=== PATIENT | female | born 1985 | race Two or more races ===

== ENCOUNTER 2025-01-14 09:27 | Emergency (ER) | payer OTHER ==
[~2025-01-14] VITALS: Ht 167.6 cm; Wt 83.9 kg
[2025-01-14] MEDS ORDERED: METHYLPREDNISOLONE SOD SUCC 40 MG VIAL IV ONE (10:30)
[2025-01-14] MEDS ORDERED: BENZONATATE 200 MG CAPSULE PO ONE (10:30)
[2025-01-14] MEDS ORDERED: LEVALBUTEROL HCL 1.25 MG/3 ML SOLUTION IH ONE ×3 (10:30→12:34)
[2025-01-14] MEDS ORDERED: FAMOtidine 10 MG/ML (4ML VIAL) IV PUSH ONE (10:30)
[2025-01-14] MEDS ORDERED: MONTELUKAST SODIUM 10 MG TABLET PO ONE (10:30)
[2025-01-14] MEDS ORDERED: FAMOTIDINE/PF 20 MG/2 ML VIAL ONE (10:34)
[2025-01-14] MEDS ORDERED: METHYLPREDNISOLONE SOD SUCC 40 MG VIAL ONE (10:50)
[2025-01-14 11:19] LABS: HEMATOCRIT 40.9 % (36.0-45.00); HEMOGLOBIN 13.6 g/dL (12.0-15.00); MEAN CORPUSCULAR HEMOGLOBIN 29.3 pg (27.00-32.0); MEAN CORPUSCULAR HGB CONC 33.3 g/dl (32.0-36.0); PLATELET COUNT 323 K/uL (150-450); RED BLOOD COUNT 4.65 M/uL (4.00-6.00); RED CELL DISTRIBUTION WIDTH 13.1 % (11.5-14.5)
[2025-01-14] MEDS ORDERED: LEVALBUTER0.63 MG/3 IH (12:25)
[2025-01-14] MEDS ORDERED: AZITHROMYCIN500 MG PO (12:25)
[2025-01-14] MEDS ORDERED: BENZONATATE200 M1 PO (12:25)
[2025-01-14] MEDS ORDERED: MEDROLPACK PO (12:25)
[2025-01-14] MEDS ORDERED: PEPCID AC20 MG PO (12:25)
[2025-01-14] MEDS ORDERED: SINGULAIR10 MG PO (12:26)
== END 2025-01-14 12:42 | disposition home or self-care (01) ==
LOC: ER 09:29
PROVIDERS: General Practice
DX: J00 Acute nasopharyngitis [common cold] (principal); Z20.822 Contact with and (suspected) exposure to COVID-19